=== PATIENT | female | born 1995 | race Caucasian/White ===

== ENCOUNTER 2020-01-27 16:44 | Emergency (ER) | payer SELFPAY ==
--- NOTE | 2020-01-27 18:14 | ER Document Report ---
ED General - General Chief Complaint: Foreign Body in Vagina Stated Complaint: VAGINAL Time Seen by Provider: 01/27/20 18:02 - HPI Notes: Patient is a 24-year-old female who presents to the emergency department for evaluation. She is concerned she may still have a tampon in her vagina. 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 She denies any pain. No abnormal discharge or odor. - Related Data Allergies/Adverse Reactions: No Known Allergies Allergy (Unverified 01/27/20 17:51) Home Medications: Daily multivitamin, Keflex Past Medical History - General Information source: Patient - Social History Smoking Status: Current Every Day Smoker Chew tobacco use (# tins/day): No Frequency of alcohol use: Rare Drug Abuse: None Family History: Reviewed & Not Pertinent Patient has suicidal ideation: No Patient has homicidal ideation: No Past Surgical History: Reports: Other - [place] teeth Review of Systems - Review of Systems Female Genitourinary: See HPI -: Yes All other systems reviewed and negative Physical Exam - Vital signs Vitals: Temp Pulse Resp BP Pulse Ox 98.7 F 80 18 130/57 H 95 01/27/20 16:50 01/27/20 16:50 01/27/20 16:50 01/27/20 16:50 01/27/20 16:50 - Notes Notes: Vital signs reviewed, please refer to chart. Head is normocephalic, atraumatic. Pupils equal round, reactive to light. Neck is supple without meningismus. Heart is regular rate and rhythm. Lungs are clear to auscultation bilaterally. Abdomen is soft, nontender, normoactive bowel sounds throughout. Extremities without cyanosis, clubbing. Skin warm and dry. Pelvic exam was performed with HERMINIO Ragsdale, present in room. Normal external genitalia. Speculum inserted. Tampon removed, intact. No other discharge or signs of foreign body. Cervix is closed. Course - Re-evaluation Re-evalutation: 01/27/20 18:57 Patient presented to the emergency department for evaluation with concerns of retained tampon. It was in fact removed here without difficulty and the patient was discharged. - Vital Signs Vital signs: Temp Pulse Resp BP Pulse Ox 98.7 F 80 18 130/57 H 95 01/27/20 17:52 01/27/20 16:50 04/27/20 16:50 01/27/20 16:50 01/27/20 16:50 Discharge - Discharge Clinical Impression: Retained tampon Qualifiers: Encounter type: initial encounter Qualified Code(s): T19.2XXA - Foreign body in vulva and vagina, initial encounter Condition: Stable Disposition: HOME, SELF-CARE Additional Instructions: As discussed, a test was not performed today. Follow-up with your primary care provider next week. If you develop foul-smelling vaginal discharge, or any other new or concerning symptoms, please return immediately to the emergency department for evaluation.
[2020-01-27 19:06] VITALS: BP 100/59
== END 2020-01-27 19:06 | disposition home or self-care (01) ==
LOC: ER 16:44 → EDSEX 16:44 → ER 19:06
DX: T19.2XXA Foreign body in vulva and vagina, initial encounter (principal); X58.XXXA Exposure to other specified factors, initial encounter; F17.200 Nicotine dependence, unspecified, uncomplicated; Z79.899 Other long term (current) drug therapy; Z79.2 Long term (current) use of antibiotics
CPT/HCPCS: 99283